=== PATIENT | female | born 1990 | race Caucasian/White ===

== ENCOUNTER 2019-10-27 00:31 | Emergency (ER) | payer BC, MEDICAID ==
[~2019-10-27] VITALS: Ht 154.9 cm; Wt 55.9 kg
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
--- NOTE | 2019-10-27 01:20 | NUR ---
CALL PLACED TO [facility] THEY WILL DISPATCH AN OFFICER, CALL PLACED TO [facility] FOR AN ADVOCATE THEY ARE ATTEMPTING TO REACH AND ADVOCATE.
--- NOTE | 2019-10-27 02:03 | NUR ---
[employer] OFFICER SAMIR AND ADVOCATE FROM [facility] AT BEDSIDE.
--- NOTE | 2019-10-27 02:14 | NUR ---
PT UNWILLING TO SPEAK WITH [employer] OFFICER SAMIR JARA #[id number] HE WILL RETURN IF SHE BECOMES WILLING TO TALK.
--- NOTE | 2019-10-27 04:48 | NUR ---
PT AWAKENED AND ABLE TO SIT UP AND AMBULATE TO BR WITH STEADY GAIT. PROVIDED A PHONE NUMBER FOR HER GRANDMOTHER, RACHEL, . AND FATHER, OCTAVIO, . LEFT MESSAGE WITH FATHER. PT GIVEN SNACKS AND JUICE AND WATER.
--- NOTE | 2019-10-27 05:07 | NUR ---
I WAS ABLE TO GET HOLD OF PTS GRANDMOTHER, RACHEL, AND SHE REPORTS SHE IS AT THE PTS HOME AT [address] [place] [address] IN [place]. PT IS DC READY AND I TOLD HER GRANDMOTHER SARAHLAURA [facility] WILL PAY FOR A CAB RIDE FOR HER TO GET TO HER HOME. PAT REPORTS THAT SHE WILL BE AT THE HOME TO RECEIVE PT.
[2019-10-27 05:25] VITALS: BP 130/68
--- NOTE | 2019-10-27 05:34 | NUR ---
pt provided taxi ride to her home and discharged.
== END 2019-10-27 05:28 | disposition home or self-care (01) ==
LOC: EEVIPCON 00:32 → ER 00:32
DX: Z00.00 Encounter for general adult medical examination without abnormal findings (principal)
CPT/HCPCS: 99281; 99283

== ENCOUNTER 2019-12-28 13:48 | Emergency (ER) | payer BC, MEDICAID ==
[~2019-12-28] VITALS: Ht 156.2 cm; Wt 57.0 kg
[2019-12-28] MEDS ORDERED: proCHLORperazine 10 MG/2 ml inj IM ONE (15:20)
[2019-12-28] MEDS ORDERED: dexamethasone 4mg tablet PO ONE (15:20)
[2019-12-28] MEDS ORDERED: ketorolac trometh. 30mg/ml inj. IM ONE (15:20)
[2019-12-28] MEDS ORDERED: dexamethasone sod phosphate 10mg/ml inj PO ONE (15:35)
--- NOTE | 2019-12-28 15:41 | NUR ---
CHARGE COORDINATOR AT BEDSIDE.
[2019-12-28 16:57] VITALS: BP 114/73
== END 2019-12-28 16:59 | disposition home or self-care (01) ==
LOC: ER 13:48
DX: G43.909 Migraine, unspecified, not intractable, without status migrainosus (principal); Z86.718 Personal history of other venous thrombosis and embolism
CPT/HCPCS: 70450; 93971; 96372; 99285; J0780; J1100; J1885

== ENCOUNTER 2020-04-06 21:24 | Emergency (ER) | payer BC, MEDICAID ==
[~2020-04-06] VITALS: Ht 154.9 cm; Wt 57.2 kg
[2020-04-06 21:29] VITALS: BP 123/79
[2020-04-06] MEDS ORDERED: triamcinolone acetonide 40mg/ml inj IM ONE (22:05)
[2020-04-06] MEDS ORDERED: HYDR28CR14 TOP (22:07)
[2020-04-06] MEDS ORDERED: PRED10TA23 PO (22:07)
== END 2020-04-06 22:22 | disposition home or self-care (01) ==
LOC: ER 21:24
DX: L23.7 Allergic contact dermatitis due to plants, except food (principal); R21 Rash and other nonspecific skin eruption; G43.909 Migraine, unspecified, not intractable, without status migrainosus; Z86.718 Personal history of other venous thrombosis and embolism; Z79.899 Other long term (current) drug therapy
CPT/HCPCS: 96372; 99283; J3301

== ENCOUNTER 2020-04-21 14:44 | Emergency (ER) | payer BC, MEDICAID ==
[~2020-04-21] VITALS: Ht 157.5 cm; Wt 57.7 kg
[~2020-04-21 14:44] MED LIST: HYDR28CR14 TOP; PRED10TA23 PO
[2020-04-21 15:33] LABS: BASOPHILS % (AUTO) 0.3 % (0-1); EOSINOPHILS # (AUTO) 0.1 X10'3 (0-0.9); EOSINOPHILS % (AUTO) 1.1 % (0-6); HEMATOCRIT 41.7 % (35.0-45.0); HEMOGLOBIN 13.9 g/dl (12.0-16.0); LYMPHOCYTES % (AUTO) 32.4 % (21-51); MEAN CORPUSCULAR HEMOGLOBIN 31.4 PG (27.0-31.0); MEAN CORPUSCULAR HGB CONC 33.3 g/dL (33.0-36.5); MEAN CORPUSCULAR VOLUME 94.2 FL (78-98); MEAN PLATELET VOLUME 7.7 FL (7.4-10.4); MONOCYTES # (AUTO) 0.7 X10'3 (0-0.9); MONOCYTES % (AUTO) 7.6 % (2-12); NEUTROPHILS # (AUTO) 5.5 X10'3 (1.8-7.7); NEUTROPHILS % (AUTO) 58.6 % (42-75); PLATELET COUNT 257 X10'3 (140-440); RED BLOOD COUNT 4.42 X10'6 (4.20-5.60); RED CELL DISTRIBUTION WIDTH 13.7 % (11.5-14.5); WHITE BLOOD COUNT 9.3 X10'3 (4.5-11.0)
[2020-04-21] MEDS ORDERED: normal saline 1000ml 1,000 ML IV ONE (15:35)
[2020-04-21] MEDS ORDERED: morphine 4 MG/ML inj SYRINge IV ONE ×2 (15:35→16:25)
[2020-04-21] MEDS ORDERED: ondansetron/PF 4mg/2ml inj IV ONE (15:35)
[2020-04-21 15:38] LABS: CLARITY,URINE CLEAR (Clear); COLOR,URINE STRAW (Yellow); GLUCOSE, URINE NEGATIVE (Neg); KETONES,URINE NEGATIVE (Neg); LEUKOCYTE ESTERASE ,URINE NEGATIVE (Neg); NITRITES, URINE NEGATIVE (Neg); OCCULT BLOOD,URINE TRACE-INTACT (Neg); PH,URINE 5.5 (4.8-8.0); PROTEIN,URINE NEGATIVE (Neg); URINE HCG NEGATIVE (NEG); UROBILINOGEN,URINE 0.2 E.U/dL (0.2-1.0)
[2020-04-21 15:42] LABS: UA COLLECTION TYPE CLN CATCH MIDSTREAM
[2020-04-21 15:48] LABS: ALANINE AMINOTRANSFERASE 35 U/L (12-78); ALBUMIN 3.9 G/DL (3.4-5.0); ALBUMIN/GLOBULIN RATIO 1.1 (1.1-1.5); ALKALINE PHOSPHATASE 57 IU/L (46-116); ANION GAP 9 (8-16); ASPARTATE AMINO TRANSFERASE 20 U/L (10-37); BILIRUBIN,TOTAL 0.5 MG/DL (0.1-1.0); BLOOD UREA NITROGEN 19 MG/DL (7-18); BUN/CREATININE RATIO 24.4 (6.6-38.0); CALCIUM 8.9 MG/DL (8.5-10.1); CHLORIDE 104 MMOL/L (99-107); CREATININE 0.78 MG/DL (0.40-0.90); GLUCOSE 74 MG/DL (70-104); LIPASE 138 U/L (73-393); POTASSIUM 4.3 MMOL/L (3.5-5.1); SODIUM 141 MMOL/L (135-145); TOTAL CARBON DIOXIDE 27.7 MMOL/L (24-32); TOTAL PROTEIN 7.3 G/DL (6.4-8.2); eGFR 86 ML/MIN
[2020-04-21 15:48] LABS: BACTERIA,URINE FEW /HPF (Neg); MUCUS STRANDS NONE SEEN /LPF (Neg); RBC,URINE 0-2 /HPF (0-2); SQUAMOUS EPITHELIAL CELL,UR FEW /LPF (FEW); WBC,URINE 0-4 /HPF (0-4)
[2020-04-21] MEDS ORDERED: HYDR-4353 PO (16:34)
[2020-04-21] MEDS ORDERED: ONDA4TAB6 PO (16:34)
[2020-04-21 16:59] VITALS: BP 109/84
== END 2020-04-21 17:00 | disposition home or self-care (01) ==
LOC: ER 14:45
DX: N20.0 Calculus of kidney (principal); R10.31 Right lower quadrant pain; G43.909 Migraine, unspecified, not intractable, without status migrainosus; Z86.718 Personal history of other venous thrombosis and embolism; Z79.899 Other long term (current) drug therapy
CPT/HCPCS: 36415; 74176; 80053; 81001; 81025; 83690; 85025; 96374; 96375; 96376; 99284; J2270; J2405; J7030

== ENCOUNTER 2020-05-22 14:48 | Emergency (ER) | payer BC, MEDICAID ==
[~2020-05-22] VITALS: Ht 154.9 cm; Wt 58.0 kg
[~2020-05-22 14:48] MED LIST changes: +ONDA4TAB6 PO; -PRED10TA23 PO
[2020-05-22 14:57] VITALS: BP 131/95
[2020-05-22] MEDS ORDERED: HYDR-4353 PO (16:31)
== END 2020-05-22 16:39 | disposition home or self-care (01) ==
LOC: ER 14:48
DX: M25.511 Pain in right shoulder (principal); M79.645 Pain in left finger(s); G43.909 Migraine, unspecified, not intractable, without status migrainosus; Z86.718 Personal history of other venous thrombosis and embolism; Z79.899 Other long term (current) drug therapy; W22.8XXA Striking against or struck by other objects, initial encounter; Y93.89 Activity, other specified; Y92.89 Other specified places as the place of occurrence of the external cause; Y99.8 Other external cause status
CPT/HCPCS: 73140; 99283

== ENCOUNTER 2020-07-25 09:59 | Emergency (ER) | payer BC, MEDICAID ==
[~2020-07-25] VITALS: Ht 157.5 cm; Wt 61.0 kg
[2020-07-25 10:15] VITALS: BP 118/82
== END 2020-07-25 11:08 | disposition home or self-care (01) ==
LOC: ER 09:59
DX: M79.9 Soft tissue disorder, unspecified (principal); M25.511 Pain in right shoulder; R20.0 Anesthesia of skin; G43.909 Migraine, unspecified, not intractable, without status migrainosus; Z86.718 Personal history of other venous thrombosis and embolism; Z79.899 Other long term (current) drug therapy
CPT/HCPCS: 99281

== ENCOUNTER 2021-10-06 04:17 | Emergency (ER) | payer BC, MEDICAID ==
[~2021-10-06] VITALS: Ht 154.9 cm; Wt 60.0 kg
[2021-10-06] MEDS ORDERED: normal saline 1000ml 1,000 ML IV ONE (04:40)
[2021-10-06] MEDS ORDERED: metoclopramide 5 mg/ml inj IV ONE (04:40)
[2021-10-06 05:27] VITALS: BP 123/89
[2021-10-06] MEDS ORDERED: METO-292 PO (06:09)
== END 2021-10-06 06:26 | disposition home or self-care (01) ==
LOC: ER 04:18
DX: O21.2 Late vomiting of pregnancy (principal); O99.351 Diseases of the nervous system complicating pregnancy, first trimester; G43.909 Migraine, unspecified, not intractable, without status migrainosus; Z87.74 Personal history of (corrected) congenital malformations of heart and circulatory system; Z3A.31 31 weeks gestation of pregnancy; Z79.899 Other long term (current) drug therapy
CPT/HCPCS: 96361; 96374; 99283; J2765; J7030; 96375

== ENCOUNTER 2022-01-30 10:45 | Emergency (ER) | payer BC, MEDICAID ==
[~2022-01-30] VITALS: Ht 154.9 cm; Wt 54.5 kg
[~2022-01-30 10:45] MED LIST changes: +METO-292 PO
[2022-01-30] MEDS ORDERED: ondansetron/PF 4mg/2ml inj IV ONE (11:05)
[2022-01-30] MEDS ORDERED: normal saline 1000ML IV soln IVB ONE (11:05)
[2022-01-30] MEDS ORDERED: metoclopramide 5 mg/ml inj IV ONE (11:20)
[2022-01-30 11:30] LABS: BASOPHILS % (AUTO) 0.1 % (0-1); EOSINOPHILS % (AUTO) 0.1 % (0-6); HEMATOCRIT 40.8 % (35.0-45.0); HEMOGLOBIN 13.5 g/dl (12.0-16.0); LYMPHOCYTES # (AUTO) 1.2 X10'3 (1.1-4.8); MEAN CORPUSCULAR HEMOGLOBIN 28.8 PG (27.0-31.0); MEAN CORPUSCULAR VOLUME 87.1 FL (78-98); MONOCYTES # (AUTO) 0.3 X10'3 (0-0.9); MONOCYTES % (AUTO) 1.9 % (2-12); NEUTROPHILS % (AUTO) 90.9 % (42-75); PLATELET COUNT 301 X10'3 (140-440); RED BLOOD COUNT 4.69 X10'6 (4.20-5.60); RED CELL DISTRIBUTION WIDTH 13.9 % (11.5-14.5); WHITE BLOOD COUNT 16.5 X10'3 (4.5-11.0)
--- NOTE | 2022-01-30 11:45 | NUR ---
pt now vomiting, crying on phone with mother. states she cannot take care of her baby.
[2022-01-30 11:50] LABS: ALANINE AMINOTRANSFERASE 26 U/L (12-78); ALBUMIN 3.9 G/DL (3.4-5.0); ALKALINE PHOSPHATASE 57 IU/L (46-116); ANION GAP 16 (8-16); ASPARTATE AMINO TRANSFERASE 19 U/L (10-37); BILIRUBIN,TOTAL 0.5 MG/DL (0.1-1.0); BLOOD UREA NITROGEN 15 MG/DL (7-18); BUN/CREATININE RATIO 21.1 (6.6-38.0); CALCIUM 9.6 MG/DL (8.5-10.1); CHLORIDE 107 MMOL/L (99-107); CREATININE 0.71 MG/DL (0.40-0.90); GLUCOSE 119 MG/DL (70-104); LIPASE 66 U/L (73-393); SODIUM 144 MMOL/L (135-145); TOTAL CARBON DIOXIDE 20.6 MMOL/L (24-32); TOTAL PROTEIN 7.8 G/DL (6.4-8.2); eGFR > 90 ML/MIN
--- NOTE | 2022-01-30 12:20 | NUR ---
pt vomited approx 100ml clear fluid.
[2022-01-30 12:45] LABS: HCG SERUM QL NEGATIVE
[2022-01-30] MEDS ORDERED: LORazepam 2 mg/ml vial IV ONE (12:50)
[2022-01-30] MEDS ORDERED: METO-292 PO (12:52)
[2022-01-30 13:49] VITALS: BP 135/74
== END 2022-01-30 14:00 | disposition home or self-care (01) ==
LOC: ER 10:45
DX: J06.9 Acute upper respiratory infection, unspecified (principal); R11.2 Nausea with vomiting, unspecified; R06.02 Shortness of breath; R10.84 Generalized abdominal pain; F41.9 Anxiety disorder, unspecified; R05.9 Cough, unspecified; R19.7 Diarrhea, unspecified; G43.909 Migraine, unspecified, not intractable, without status migrainosus; Z86.718 Personal history of other venous thrombosis and embolism; Z98.890 Other specified postprocedural states; Z79.899 Other long term (current) drug therapy
CPT/HCPCS: 36415; 71045; 80053; 83690; 84703; 85025; 96374; 96375; 99284; J2060; J2765; J7030

== ENCOUNTER 2023-06-09 15:14 | Emergency (ER) | payer BC, MEDICAID | END 2023-06-09 16:02 | disposition left against medical advice (07) | LOC: ER 15:14 | DX: T81.9XXA Unspecified complication of procedure, initial encounter (principal); Z53.21 Procedure and treatment not carried out due to patient leaving prior to being seen by health care provider ==

== ENCOUNTER 2024-06-26 03:01 | Emergency (ER) | payer BC, MEDICAID ==
[~2024-06-26] VITALS: Ht 154.9 cm; Wt 50.0 kg
[2024-06-26] MEDS ORDERED: ONDA-243 PO (03:28)
[2024-06-26] MEDS: LORazepam 2 mg/ml vial IV ONE (03:31)
[2024-06-26] MEDS: normal saline 1000ml 1,000 ML IV ONE (03:31)
[2024-06-26] MEDS: morphine 4 MG/ML inj SYRINge IV ONE (03:33)
[2024-06-26] MEDS: loperamide 2mg capsule PO ONE (03:35)
[2024-06-26 04:15] LABS: BASOPHILS % (AUTO) 0.1 % (0-1); EOSINOPHILS % (AUTO) 0.2 % (0-6); HEMATOCRIT 36.2 % (35.0-45.0); HEMOGLOBIN 12.2 g/dl (12.0-16.0); LYMPHOCYTES # (AUTO) 0.3 X10'3 (1.1-4.8); LYMPHOCYTES % (AUTO) 2.9 % (21-51); MEAN CORPUSCULAR HEMOGLOBIN 31.1 PG (27.0-31.0); MEAN CORPUSCULAR HGB CONC 33.7 g/dL (33.0-36.5); MEAN CORPUSCULAR VOLUME 92.4 FL (78-98); MEAN PLATELET VOLUME 8.1 FL (7.4-10.4); MONOCYTES # (AUTO) 0.2 X10'3 (0-0.9); MONOCYTES % (AUTO) 1.7 % (2-12); NEUTROPHILS % (AUTO) 95.1 % (42-75); PLATELET COUNT 203 X10'3 (140-440); RED BLOOD COUNT 3.92 X10'6 (4.20-5.60); WHITE BLOOD COUNT 11.6 X10'3 (4.5-11.0)
[2024-06-26 04:23] LABS: ALANINE AMINOTRANSFERASE 21 U/L (12-78); ALBUMIN 3.3 G/DL (3.4-5.0); ALBUMIN/GLOBULIN RATIO 1.1 (1.1-1.5); ALKALINE PHOSPHATASE 37 IU/L (46-116); ANION GAP 12 (8-16); ASPARTATE AMINO TRANSFERASE 18 U/L (10-37); BLOOD UREA NITROGEN 17 MG/DL (7-18); BUN/CREATININE RATIO 24.6 (10.0-20.0); CALCIUM 7.6 MG/DL (8.5-10.1); CHLORIDE 109 MMOL/L (99-107); CREATININE 0.69 MG/DL (0.40-0.90); GLUCOSE 168 MG/DL (70-104); LIPASE 21 U/L (16-77); SODIUM 145 MMOL/L (135-145); TOTAL CARBON DIOXIDE 24.4 MMOL/L (24-32); TOTAL PROTEIN 6.2 G/DL (6.4-8.2); eCRCL 86 ML/MIN; eGFR > 90 ML/MIN
[2024-06-26 06:10] LABS: BILIRUBIN,URINE NEGATIVE (Neg); CLARITY,URINE SLIGHTLY CLOUDY (Clear); COLOR,URINE YELLOW (Yellow); GLUCOSE, URINE NEGATIVE (Neg); KETONES,URINE >=80 mg/dl (Neg); LEUKOCYTE ESTERASE ,URINE NEGATIVE (Neg); NITRITES, URINE NEGATIVE (Neg); OCCULT BLOOD,URINE NEGATIVE (Neg); PH,URINE 7.5 (4.8-8.0); PROTEIN,URINE NEGATIVE (Neg); UROBILINOGEN,URINE 0.2 E.U/dL (0.2-1.0)
[2024-06-26 06:11] LABS: URINE HCG NEGATIVE (NEG)
[2024-06-26 06:19] LABS: UA COLLECTION TYPE CLN CATCH MIDSTREAM
[2024-06-26 06:20] LABS: BACTERIA,URINE 1+ /HPF (Neg); MUCUS STRANDS FEW /LPF (Neg); SQUAMOUS EPITHELIAL CELL,UR MANY /LPF (FEW)
[2024-06-26 06:21] LABS: RBC,URINE 0-2 /HPF (0-2); WBC,URINE 0-4 /HPF (0-4)
[2024-06-26 06:55] VITALS: BP 114/78; PULSE 70; RESP 16; TEMP 98.1; O2SAT 97
== END 2024-06-26 06:57 | disposition home or self-care (01) ==
LOC: ER 03:02
DX: R19.7 Diarrhea, unspecified (principal); R11.10 Vomiting, unspecified; B34.9 Viral infection, unspecified; G43.909 Migraine, unspecified, not intractable, without status migrainosus; Z79.899 Other long term (current) drug therapy
CPT/HCPCS: 36415; 80053; 81001; 81025; 83690; 85025; 96374; 96375; 99285; J2060; J2270; J7030